=== PATIENT | female | born 1970 | race Two or more races ===

== ENCOUNTER 2017-05-11 09:45 | Day surgery (SDC) | payer BC ==
[~2017-05-11] VITALS: Ht 165.1 cm; Wt 62.1 kg
[~2017-05-11 09:45] MED LIST: DAILY MULTIPLE1 EACH PO
--- NOTE | 2017-05-11 13:29 | NUR ---
COMFORTABLE. HAVE KEPT UPDATED. IV PATENT.
--- NOTE | 2017-05-11 14:11 | NUR ---
05/11/17 1411 Sadie Bush 1405 PATIENT ARRIVES TO PACU SLEEPING, OPENS EYES TO VERBAL STIMULI, THEN BACK TO SLEEP. RESP EVEN AND UNLABORED, NC AT 2 LITERS.
--- NOTE | 2017-05-14 12:38 | OR ---
[facility] [address] [place], [place] [address] Signed DATE OF SERVICE: 05/11/2017 PREOPERATIVE DIAGNOSES: Menometrorrhagia and abnormal endometrium. POSTOPERATIVE DIAGNOSIS: Menometrorrhagia and abnormal endometrium. PROCEDURE: Hysteroscopy with biopsy. SURGEON: Jake Gordon MD ANESTHESIA: MAC. ESTIMATED BLOOD LOSS: 10 mL. SPECIMEN: Endometrium. DRAINS: None. FINDINGS Vagina, slight blood. Cervix normal size and shape, slight bleeding. Uterus upper limits normal size. Uterine cavity sounded to 10 cm with diffuse irregular fluffy yellowish endometrial tissue. There were no fibroids, no polyps seen. COMPLICATIONS: None. DESCRIPTION OF PROCEDURE: The patient was brought into the operating room, placed in the supine position. After adequate MAC was obtained, the patient was placed in dorsal lithotomy position. Prepped and draped in usual sterile fashion. A weighted speculum was placed in the vagina and the anterior lip of the cervix grasped with an Allis clamp. Uterine cavity was sounded to 10 cm then cervix dilated up to a #7-Hebrew dilator. The hysteroscope was then carefully introduced in to the cervical canal and uterine cavity under direct visualization. Sterile saline was used as distending medium. The above findings were noted. The weighted speculum was removed and MyoSure Lite biopsy cannula was inserted through the hysteroscope and the irregular tissue was carefully removed under direct visualization. This was continued anterior, posterior, and laterally up to the cornua on each side. Care was taken to stay in the endometrium, but to get endometrial tissue removed throughout the uterine cavity. This was continued until no additional tissue was seen and cavity was reinspected and noted to have good smooth surface throughout the cavity. The hysteroscope was then removed, endocervix observed and noted to be norm al Electronically Signed By: JAKE GORDON MD 05/14/17 1238 PATIENT NAME: MATHEUS BUSTILLO OPERATIVE REPORT DATE OF : 68 PHYSICIAN: JAKE GORDON MD REPORT #: [id number] REPORT IS CONFIDENTIAL AND NOT TO BE RELEASED WITHOUT AUTHORIZATION [facility] [address] [place] [id number] Signed with no lesions. All instruments were then removed from the vagina. Good hemostasis was noted of the cervix. The fluid loss was noted to be 595 mL and pressure was set at 88 mmHg. Jake Gordon MD Modl Electronically Signed By: JAKE GORDON MD 05/14/17 1238 PATIENT NAME: MATHEUS BUSTILLO OPERATIVE REPORT DATE OF : 68 PHYSICIAN: JAKE GORDON MD REPORT #: [id number] REPORT IS CONFIDENTIAL AND NOT TO BE RELEASED WITHOUT AUTHORIZATION
== END 2017-05-11 15:00 | disposition home or self-care (01) ==
LOC: OPS 09:45 → DS 09:45 → OPS 10:19 → DS 13:00 → OPS 13:00 → DS 05-18 06:45
PROVIDERS: General Practice
PROC: 0UDB8ZX Extraction of Endometrium, Via Natural or Artificial Opening Endoscopic, Diagnostic (ICD-10-PCS; principal; 2017-05-11 13:15)
DX: N92.1 Excessive and frequent menstruation with irregular cycle (principal); J45.20 Mild intermittent asthma, uncomplicated; Z98.890 Other specified postprocedural states
CPT/HCPCS: 00952; J1885; J2405; J2704; J3010; J7120